=== PATIENT | female | born 1945 | race Caucasian/White ===

== ENCOUNTER 2017-07-26 06:32 | Day surgery (SDC) | payer MEDICARE, BC ==
[~2017-07-26] VITALS: Ht 157.5 cm; Wt 53.6 kg
[2017-07-26 06:46] VITALS: BP 154/87
[2017-07-26] MEDS ORDERED: LEVO50TA8 PO (06:53)
[2017-07-26] MEDS ORDERED: OMEG-128 PO (06:54)
[2017-07-26] MEDS ORDERED: CALC-499 PO (06:54)
[2017-07-26] MEDS ORDERED: CHOL50004 PO (06:56)
[2017-07-26] MEDS ORDERED: fentaNYL/PF 50MCG/1 ML 2ML syringe ONE (07:06)
[2017-07-26] MEDS ORDERED: MIDAZolam 5mg/5ml vial ONE (07:06)
[2017-07-26 07:50] VITALS: BP 103/48
[2017-07-26 08:00] VITALS: BP 110/56
[2017-07-26 08:10] VITALS: BP 109/56
[2017-07-26 08:20] VITALS: BP 108/74
== END 2017-07-26 08:30 | disposition home or self-care (01) ==
LOC: GI LAB 06:32
PROVIDERS: ATTEND Internal Medicine Gastroenterology
DX: K58.9 Irritable bowel syndrome, unspecified (principal)
CPT/HCPCS: 45378; 99153; G0500; J2250; J3010; J7030; A4620